=== PATIENT | female | born 1955 | race Caucasian/White ===

== ENCOUNTER → 2017-06-05 | Outpatient (CLI) | payer BC ==
[~2017-06-05] MED LIST: ACET500T58 PO; ADAL40KI SQ; CHOL1CAP57 PO; CLB/200 PO; CYAN10005 PO; DICY10CA55 PO; ESTETAB3 PO; FERROUS GLUCONATE PO; FOLI1TAB8 PO; HYDR0.5T PO; LEVO75TA PO; LIDO5DIS10 TD; LIOT25TA10 PO; LISD1CAP2 PO; MEDR2.5T PO; METH1INJ89 IV; MULT-506 PO; NIFE30TA83 PO; OMEG1CAP26 PO; PANT40TA PO; PREG100C PO; SERT-234 PO
== END | disposition home or self-care (01) ==
LOC: C.LAB1850 11:03
PROVIDERS: ATTEND Internal Medicine Endocrinology, Diabetes & Metabolism
DX: E03.9 Hypothyroidism, unspecified (principal)